=== PATIENT | male | born 1970 | race Caucasian/White ===

== ENCOUNTER 2019-12-13 10:09 | Emergency (ER) | payer OTHER, SELFPAY ==
[2019-12-13 10:09] VITALS: BP 140/98; PULSE 89; RESP 16; TEMP 36.9; O2SAT 98; BMI 30.1
--- NOTE | 2019-12-13 11:01 | HMH.EDUTC ---
[facility] [place] [facility] [place] Clinical Impression: Encounter for laboratory testing for COVID-19 virus Disposition: Home, Self-Care Condition on Discharge: Good Instructions: Preventing the Spread of Coronavirus Discharge Instructions Additional Instructions: *Monitor Temp, Over the counter Motrin or Tylenol as directed/as needed Tylenol every 4 hours and Motrin every 6 hours (as long as your family doctor has told you that you can take it) for fever or pain. and straight to ER if unable to lower temp less than 101.0 after medication given *Warm salt water gargles may help to soothe the throat *Throat Lozenges *Warm fluids like tea with honey may help to soothe the throat *Sleep elevated *Humidifier/Vaporizer *Flonase 2 sprays in each nostril daily but be aware that it may take 2-3 days before you notice improvement Follow up IMMEDIATELY for new or worsening symptoms or no Noticeable improvement over the next 48-72 hours. 911 for difficulty breathing or swallowing You was tested for today for COVID19 your test result should be back within the next 48-72 hours, call back to the [facility] to see if your test results are back and the result You was given a handout with instructions for Self Quarantine and Self isolation for while you wait on test results and what to do if they are positive Prescriptions: Fluticasone Propionate [Flonase 50mcg nasal spray 16gm] 1 - 2 spr NS DAILY #1 bottle Transmission Status: Sent to [facility] Pharmacy # [id number] Referrals: PCP,No [Primary Care Provider] - As needed Time of Disposition: 11:14 Medical Decision Making - Jaime Inquiry Pt receiving controlled substance: No Jaime was queried for this patient: No Vital Signs: 12/13/19 10:09 Temperature 98.4 F Temperature Source Oral Pulse Rate [Right] 89 Respiratory Rate 16 Blood Pressure [Right Arm] 140/98 H Blood Pressure Mean [Right Arm] 112 Blood Pressure Source [Right Arm] Automatic Cuff Blood Pressure Position [Right Arm] Sitting 02 Sat by Pulse Oximetry 98 Oxygen Delivery Method Room Air Orders (Tests/Meds): ORDERS Category Date Time Status Covid-19 Nasal PCR Sendout [facility] 12/13/19 10:35 Received [facility] [place] [facility] [place] HPI - General Stated complaint: covid test Time Seen by Provider: 12/13/19 11:01 Mode of Arrival: Ambulatory Source of Information: Patient Limitations: No Limitations Description of Symptoms (Recalled from Triage Doc. by RN): PT c/o sore throat, body aches and some nasal drainage. Wants to be swabbed for covid HEENT Symptoms (Recalled from RN notes): No Resp Symptoms (Recalled from RN notes): No Skin Symptoms (Recalled from RN notes): No MS Symptoms (Recalled from RN notes): No Functional Status (Recalled from RN notes): na - History of Present Illness Provider Complaint: Patient requesting to be tested for COVID 19 States that he has been having body aches, chills, and a little bit of nasal drainage States that he was unsure if he has been exposed but he has been around another person whos father tested positive this morning States unable to work until he gets tested - Related Data Previous Rx's Medication Instructions Recorded Fluticasone Propionate [Flonase 1 - 2 spr NS DAILY #1 bottle 12/13/19 50mcg nasal spray 16gm] Allergies Allergy/AdvReac Type Severity Reaction Status Date / Time No Known Allergies Allergy Verified 12/13/19 10:31 - Worker's Comp Is this a Worker's Comp case?: No [facility] History - Hepatitis A Screen Drug use history?: No High risk sexual behaviors?: No History of sexually transmitted infection?: No Currently employed?: No Childcare worker?: No Do you have indoor plumbing?: Yes Do you have electricity?: Yes Attestation statement:: This patient has been screened for Hepatitis A risk factors. I have reviewed the patient's past medical history: Yes ROS Obtained: Yes All systems reviewed & no additional complaints, Yes Systems reviewed as appropriate & no additional complain
[2019-12-13 11:15] VITALS: BP 138/97; PULSE 85; RESP 16; TEMP 36.9; O2SAT 98
[2019-12-14 15:28] LABS: Covid-19 Nasal PCR Sendout Lex Not Detected
== END 2019-12-13 11:16 | disposition home or self-care (01) ==
PROVIDERS: Emergency Provider Nurse Practitioner
DX: Z20.828 Contact with and (suspected) exposure to other viral communicable diseases (principal); J02.9 Acute pharyngitis, unspecified
CPT/HCPCS: 99201; U0004